=== PATIENT | male | born 2005 | race Two or more races ===

== ENCOUNTER 2024-01-15 15:52 | Emergency (ER) | payer BC, MEDICAID ==
[~2024-01-15] VITALS: Ht 175.3 cm; Wt 56.7 kg
[2024-01-15 16:21] VITALS: BP 109/66; TEMP 97.9; O2SAT 100
== END 2024-01-15 18:08 | disposition home or self-care (01) ==
LOC: ER 15:59
DX: S00.33XA Contusion of nose, initial encounter (principal); W50.0XXA Accidental hit or strike by another person, initial encounter; Y93.67 Activity, basketball; Y92.89 Other specified places as the place of occurrence of the external cause; Y99.8 Other external cause status
CPT/HCPCS: 70160-TC